=== PATIENT | female | born 1945 | race Caucasian/White ===

== ENCOUNTER 2017-01-28 14:03 | Outpatient (CLI) | payer MEDICARE, BC ==
--- NOTE | 2017-01-28 16:17 | RAD ---
CHEST PA AND LATERAL: History: 72-year-old female with cough. FINDINGS: Loop recorder overlies the anterior left chest. Atherosclerosis and old granulomatous disease. No co nfluent pneumonia, overt edema, or pleural effusion. IMPRESSION: No acute intrathoracic disease. POS: [facility]
== END 2017-01-28 14:04 | disposition home or self-care (01) ==
LOC: RAD-FRANK 14:03
PROVIDERS: ATTEND Nurse Practitioner Family
DX: R05 Cough (principal)
CPT/HCPCS: 71020

== ENCOUNTER 2017-07-15 12:00 | Outpatient (CLI) | payer MEDICARE, BC | END 2017-07-15 12:01 | disposition home or self-care (01) | LOC: BICCT 12:00 | PROVIDERS: ATTEND Nurse Practitioner Family | DX: J06.9 Acute upper respiratory infection, unspecified (principal); R05 Cough; R91.1 Solitary pulmonary nodule; Z77.22 Contact with and (suspected) exposure to environmental tobacco smoke (acute) (chronic) | CPT/HCPCS: 71250 ==

== ENCOUNTER 2017-09-30 12:40 | Emergency (ER) | payer MEDICARE, BC ==
[2017-09-30 13:39] LABS: #Basophils 0.1 thou/uL (0.0-0.2); #Eosinphils 0.1 thou/uL (0.0-0.7); #Lymphocytes 1.7 thou/uL (1.20-3.40); #Monocytes 0.7 thou/uL (0.11-0.59); #Neutrophils 5.7 thou/uL (1.40-6.50); %Basophils 0.9 % (0.0-1.0); %Eosinophils 0.9 % (0.0-10.0); %Lymphocytes 20.4 % (21.0-51.0); %Monocytes 8.9 % (0.0-10.0); %Neutrophils 68.8 % (42.0-75.0); Hemoglobin 14.9 g/dL (12.0-16.0); Mean Corpuscular HGB CONC 34.2 g/dL (32.0-36.0); Mean Corpuscular Hemoglobin 29.5 pg (27.0-31.0); Mean Corpuscular Volume 86.3 fL (78.0-98.0); Mean Platelet Volume 7.8 fL (7.4-10.4); Platelet Count 199 thou/uL (130-400); RBC Distribution Width 11.8 % (11.5-14.5); Red Blood Cell (RBC) Count 5.07 mill/uL (4.20-5.40); White Blood Cell (WBC) Count 8.3 thou/uL (4.8-10.8)
[2017-09-30 13:43] LABS: Anion Gap 13 mmol/L (10-20); BUN (Urea Nitrogen) 10 mg/dL (9.8-20.1); Calc. Creatinine Clearance 0 mL/min (70-130); Calcium 9.5 mg/dL (7.8-10.44); Carbon Dioxide 25 mmol/L (23-31); Chloride 105 mmol/L (98-107); Estimated GFR-MDRD Greater than 90; Glucose 124 mg/dL (83-110); Potassium 3.4 mmol/L (3.5-5.1); Sodium 140 mmol/L (136-145)
--- NOTE | 2017-09-30 13:48 | CT ---
CT HEAD NONCONTRAST: Date: 09/30/17 INDICATINO: Post-traumatic injury, head pain. FINDINGS: There is no acute intracranial hemorrhage, mass effect, or midline shift. The calvarium is intact. No pneumocephalus. IMPRESSION: No acute intracranial hemorrhage or mass effect. POS: [facility]
[2017-09-30 13:49] LABS: CKMB 1.4 ng/mL (0-6.6); Troponin I Less than 0.010 ng/mL (< 0.028)
[2017-09-30 13:56] LABS: Bilirubin Negative (Negative); Blood, Urine Trace (Negative); Glucose, Urine (Dipstick) Negative (Negative); Leukocyte Small (Negative); Nitrite Negative (Negative); Protein, Urine (Dipstick) Negative (Neg-Trace); Urobilinogen 0.2 mg/dL (0.2-1.0); pH, Urine 6.5 (5.0-9.0)
[2017-09-30 13:57] LABS: Clarity Hazy (Clear); Specific Gravity, Urine 1.006 (1.002-1.036)
[2017-09-30 14:00] LABS: Bacteria/HPF 3+ HPF (None Seen); RBC/HPF 0-3 HPF (0-3); WBC/HPF 0-3 HPF (0-3)
--- NOTE | 2017-09-30 15:56 | RAD ---
2 VIEWS CHEST: Date: 09/30/17 COMPARISON: 01/28/17. HISTORY: Chest trauma after syncope yesterday. Patient fell and hit left side of body. FINDINGS: Two views of the chest show normal sized cardiomediastinal silhouette. There is no evidence of consol idation, mass, or pleural effusion. The bones are unremarkable. A cardiac monitoring device projects over the left chest. IMPRESSION: No evidence of acute cardiopulmonary disease. POS: [facility]
--- NOTE | 2017-09-30 15:59 | RAD ---
LEFT HIP TWO VIEWS: HISTORY: Fall two days ago, landing on left side, with left hip and leg pain. FINDINGS: Two views of the left hip show no evidence of acute fracture or dislocation. No degenerative change is seen in the left hip. There is a well circumscribed, sclerotic lesion in the proximal diaphysis o f the femur. No focal soft tissue swelling is seen. IMPRESSION: No evidence of acute osseous abnormality. POS: [facility]
--- NOTE | 2017-09-30 15:59 | RAD ---
SINGLE VIEW OF THE PELVIS: Comparison: None. History: Fell with left sided hip pain. FINDINGS: Single view of the pelvis shows no evidence of acute fracture or dislocation. No significant degenera tive change is seen in either hip. IMPRESSION: No evidence of acute osseous abnormality. POS: [facility]
== END 2017-09-30 14:46 | disposition home or self-care (01) ==
LOC: SCSER 12:40
DX: S00.03XA Contusion of scalp, initial encounter (principal); S70.02XA Contusion of left hip, initial encounter; S30.1XXA Contusion of abdominal wall, initial encounter; N39.0 Urinary tract infection, site not specified; E03.9 Hypothyroidism, unspecified; I48.91 Unspecified atrial fibrillation; E78.1 Pure hyperglyceridemia; M85.80 Other specified disorders of bone density and structure, unspecified site; W18.30XA Fall on same level, unspecified, initial encounter
CPT/HCPCS: 70450; 71046; 72170; 80048; 81003; 81015; 82553; 84484; 85025

== ENCOUNTER 2017-10-28 10:29 | Outpatient (CLI) | payer MEDICARE, BC ==
--- NOTE | 2017-10-29 06:57 | EKG ---
Test Reason : Blood Pressure : / mmHG Vent. Rate : 054 BPM Atrial Rate : 054 BPM P-R Int : 160 ms QRS Dur : 094 ms QT Int : 458 ms P-R-T Axes : 070 055 043 degrees QTc Int : 434 ms Sinus bradycardia Otherwise normal ECG No previous ECGs available Confirmed by STEVO ABRAHAM ([id number]) on 10/29/2017 6:56:46 AM Referred By: JORDAN Confirmed By:STEVO ABRAHAM
== END 2017-10-28 10:30 | disposition home or self-care (01) ==
LOC: LABBT 10:29
PROVIDERS: ATTEND Internal Medicine Cardiovascular Disease
DX: Z01.818 Encounter for other preprocedural examination (principal); I47.2 Ventricular tachycardia
CPT/HCPCS: 36415; 80053; 80061; 85025; 85610; 85730; 93005; 93010

== ENCOUNTER 2017-10-31 06:52 | Day surgery (SDC) | payer MEDICARE, BC ==
[2017-10-28 09:58] VITALS: BMI 28.3
[2017-10-31] MEDS ORDERED: Midazolam HCl 2 mg/2 ml Vial ONE (10:17)
[2017-10-31] MEDS ORDERED: Fentanyl 100 MCG/2 ML VIAL ONE (10:17)
[2017-10-31] MEDS ORDERED: Iopamidol 370 76% 100 ML VIAL ONE (11:27)
== END 2017-10-31 14:05 | disposition home or self-care (01) ==
LOC: CCL 06:52
PROVIDERS: ATTEND Internal Medicine Cardiovascular Disease
DX: I47.2 Ventricular tachycardia (principal); I48.0 Paroxysmal atrial fibrillation; I50.30 Unspecified diastolic (congestive) heart failure; I47.1 Supraventricular tachycardia; E78.5 Hyperlipidemia, unspecified; K21.9 Gastro-esophageal reflux disease without esophagitis; G47.30 Sleep apnea, unspecified; K58.9 Irritable bowel syndrome, unspecified; Z79.52 Long term (current) use of systemic steroids; Z79.899 Other long term (current) drug therapy; Z79.01 Long term (current) use of anticoagulants; Z88.0 Allergy status to penicillin; Z88.2 Allergy status to sulfonamides; Z88.8 Allergy status to other drugs, medicaments and biological substances
CPT/HCPCS: 93458; C1769; 99152; J1644; J2250; J3010

== ENCOUNTER 2018-04-21 08:36 | Outpatient (CLI) | payer MEDICARE, BC ==
--- NOTE | 2018-04-21 10:32 | CT ---
CT OF CHEST PERFORMED WITHOUT CONTRAST ENHANCEMENT: History: Follow up with pulmonary nodule. Comparison: 07-15-17 FINDINGS: A calcified granuloma is seen in the right middle lobe. The indistinct subpleural left lower lobe pul monary nodule seen on axial image 102 is stable in size. It measures in the 6-7 mm range. No new nodu le is identified. No significant mediastinal or hilar adenopathy. Splenic granulomas are again demonstrated. Midthoracic vertebral body hemangioma with some superior e ndplate loss is again demonstrated. IMPRESSION: Stable left lower lobe pulmonary nodule. Additional annual follow up would be recommended. POS: [facility]
== END 2018-04-21 08:37 | disposition home or self-care (01) ==
LOC: BICCT 08:36
PROVIDERS: ATTEND Internal Medicine Critical Care Medicine
DX: R91.1 Solitary pulmonary nodule (principal)
CPT/HCPCS: 71250

== ENCOUNTER 2019-04-29 09:53 | Outpatient (CLI) | payer MEDICARE, BC ==
--- NOTE | 2019-04-29 11:12 | CT ---
CT OF THE CHEST: Date: 04/29/2019 COMPARISON: 04/21/2018. HISTORY: Reevaluate pulmonary nodule. TECHNIQUE: Axial CT imaging at 2 mm intervals through the chest without contrast. Coronal and sagittal reformatt ed imaging obtained. FINDINGS: The lack of contrast media limits assessment of the imaged viscera, the vascular structures, and for lymphadenopathy. Imaged upper abdomen demonstrates splenic granulomata and cholecystectomy clips. Par tially imaged colonic diverticulosis noted in the left upper quadrant. No pleural, pericardial, or mediastinal fluid. Loop recorder is noted within the subcutaneous fat in the mid left chest anteriorly. There is no pneumothorax on either side. There is a nodule in the left lower lobe on axial image 93 with a subtle halo of ground-glass opacity . This nodule measures approximately 5-6 mm in transverse dimension, unchanged when compared to the p rior examination. Stable granuloma noted in right middle lobe. No new pulmonary nodule is noted on either side. Review of the osseous structures demonstrates no acute findings. IMPRESSION: Stable nodule in the left lower lobe. An additional 1 year follow-up CT is suggested to document stab ility over a 2 year time period. POS: [facility]
== END 2019-04-29 09:54 | disposition home or self-care (01) ==
LOC: BICCT 09:53
PROVIDERS: ATTEND Internal Medicine Critical Care Medicine
DX: R91.8 Other nonspecific abnormal finding of lung field (principal)
CPT/HCPCS: 71250

== ENCOUNTER 2020-01-21 08:12 | Outpatient (CLI) | payer MEDICARE, BC ==
--- NOTE | 2020-01-21 09:36 | RAD ---
2 VIEW CHEST: Date: 01/21/2020 HISTORY: Fall with injury to chest. Comparison made to chest x-ray of 09/30/2017. FINDINGS: Lungs appear clear. No infiltrate or pneumothorax. Heart and mediastinum unremarkable and stable in a ppearance. Heart and mediastinum unremarkable and stable in appearance. Vascular markings are within normal range and stable. Vertebral bodies of the thoracic spine maintain height and alignment. Slight wedging of a mid thoracic vertebra is stable. No acute compression injury identified. IMPRESSION: No acute findings. POS: [facility]
[2020-01-21 10:12] LABS: #Basophils 0.1 thou/uL (0.0-0.2); #Eosinphils 0.1 thou/uL (0.0-0.7); #Lymphocytes 1.7 thou/uL (1.20-3.40); #Monocytes 0.6 thou/uL (0.11-0.59); #Neutrophils 4.6 thou/uL (1.40-6.50); %Basophils 0.8 % (0.0-1.0); %Eosinophils 1.6 % (0.0-10.0); %Lymphocytes 24.4 % (21.0-51.0); %Monocytes 8.1 % (0.0-10.0); %Neutrophils 65.1 % (42.0-75.0); Hemoglobin 13.4 g/dL (12.0-16.0); Mean Corpuscular HGB CONC 33.6 g/dL (32.0-36.0); Mean Corpuscular Hemoglobin 30.2 pg (27.0-31.0); Mean Corpuscular Volume 89.7 fL (78.0-98.0); Mean Platelet Volume 8.3 fL (7.4-10.4); Platelet Count 218 thou/uL (130-400); RBC Distribution Width 12.4 % (11.5-14.5); Red Blood Cell (RBC) Count 4.46 mill/uL (4.20-5.40)
[2020-01-21 10:30] LABS: Albumin 3.9 g/dL (3.4-4.8); Alkaline Phosphatase 75 U/L (40-110); Anion Gap 10 mmol/L (10-20); BUN (Urea Nitrogen) 9 mg/dL (9.8-20.1); Bilirubin, Total 0.4 mg/dL (0.2-1.2); Calc. Creatinine Clearance 0 mL/min (70-130); Calcium 9.1 mg/dL (7.8-10.44); Carbon Dioxide 30 mmol/L (23-31); Chloride 105 mmol/L (98-107); Estimated GFR-MDRD 86; Globulin 2.6 g/dL (2.4-3.5); Glucose 95 mg/dL (83-110); Potassium 3.8 mmol/L (3.5-5.1); Protein, Total 6.5 g/dL (6.0-8.3); Sodium 141 mmol/L (136-145); Triglycerides 182 mg/dL (Less than 150)
[2020-01-21 11:18] LABS: Thyroid Stimulating Hormone 1.4106 uIU/mL (0.35-4.94); Vitamin D, 25 Hydroxy 46.5 ng/ml (> 30.0)
[2020-01-21 13:07] LABS: ALT (SGPT) 18 U/L (8-55); AST (SGOT) 17 U/L (5-34); Cardiac Risk 2.9 (Less than 4.5); Cholesterol 137 mg/dl (< 200 Desired); HDL Cholesterol 48 mg/dL (>60 Neg Risk); LDL Cholesterol, Calculated 53 mg/dL
== END 2020-01-21 08:13 | disposition home or self-care (01) ==
LOC: SCSRAD 08:12
PROVIDERS: ATTEND Nurse Practitioner Family
DX: S20.211A Contusion of right front wall of thorax, initial encounter (principal); E03.9 Hypothyroidism, unspecified; K63.5 Polyp of colon; E55.9 Vitamin D deficiency, unspecified; M85.80 Other specified disorders of bone density and structure, unspecified site; G47.33 Obstructive sleep apnea (adult) (pediatric); E78.2 Mixed hyperlipidemia; K58.9 Irritable bowel syndrome, unspecified; I47.1 Supraventricular tachycardia; I48.0 Paroxysmal atrial fibrillation; I50.32 Chronic diastolic (congestive) heart failure
CPT/HCPCS: 36415; 71046; 80053; 80061; 82306; 84443; 85025

== ENCOUNTER 2021-12-17 17:22 | Emergency (ER) | payer MEDICARE, BC ==
[~2021-12-17 17:22] MED LIST: Iopamidol-370 76% 500 ML 1 ML ONE
[2021-12-17] MEDS ORDERED: Ondansetron PF 4 MG/2 ML Vial ONE (18:09)
[2021-12-17 18:34] LABS: #Lymphocytes 0.9 thou/uL (1.20-3.40); #Monocytes 1.2 thou/uL (0.11-0.59); #Neutrophils 11.4 thou/uL (1.40-6.50); %Basophils 0.1 % (0.0-1.0); %Eosinophils 0.2 % (0.0-10.0); %Lymphocytes 6.5 % (21.0-51.0); %Monocytes 8.5 % (0.0-10.0); %Neutrophils 84.6 % (42.0-75.0); Hemoglobin 14.2 g/dL (12.0-16.0); Mean Corpuscular HGB CONC 31.8 g/dL (32.0-36.0); Platelet Count 260 thou/uL (130-400); RBC Distribution Width 12.4 % (11.5-14.5); White Blood Cell (WBC) Count 13.5 thou/uL (4.8-10.8)
[2021-12-17 18:50] LABS: ALT (SGPT) 13 U/L (8-55); AST (SGOT) 16 U/L (5-34); Albumin 4.2 g/dL (3.4-4.8); Alkaline Phosphatase 77 U/L (40-110); Anion Gap 16 mmol/L (10-20); BUN (Urea Nitrogen) 39 mg/dL (9.8-20.1); Bilirubin, Total 0.7 mg/dL (0.2-1.2); CK (CPK) 27 U/L (29-168); Calc. Creatinine Clearance 0 mL/min (70-130); Calcium 9.8 mg/dL (7.8-10.44); Carbon Dioxide 32 mmol/L (23-31); Chloride 93 mmol/L (98-107); Estimated GFR 71; Globulin 2.7 g/dL (2.4-3.5); Glucose 138 mg/dL (83-110); Lipase 17 U/L (8-78); Potassium 3.1 mmol/L (3.5-5.1); Protein, Total 6.9 g/dL (5.8-8.1); Sodium 138 mmol/L (136-145)
[2021-12-17] MEDS ORDERED: Potassium Chloride 20 MEQ TAB ONE (20:11)
== END 2021-12-17 22:00 | disposition home or self-care (01) ==
LOC: ERS 17:22
DX: R11.2 Nausea with vomiting, unspecified (principal); E87.6 Hypokalemia; E03.9 Hypothyroidism, unspecified; I48.91 Unspecified atrial fibrillation
CPT/HCPCS: 36415; 74177; 80053; 82550; 83690; 84484; 85025; 93005; 96374; J2405; Q9967

== ENCOUNTER 2022-04-20 07:53 | Inpatient (IN) | payer MEDICARE, BC ==
[2022-04-20 08:35] LABS: #Lymphocytes 0.9 thou/uL (1.20-3.40); #Monocytes 0.6 thou/uL (0.11-0.59); #Neutrophils 3.8 thou/uL (1.40-6.50); %Basophils 0.2 % (0.0-1.0); %Eosinophils 0.2 % (0.0-10.0); %Lymphocytes 16.8 % (21.0-51.0); %Monocytes 10.5 % (0.0-10.0); %Neutrophils 72.3 % (42.0-75.0); Hemoglobin 15.8 g/dL (12.0-16.0); Mean Corpuscular HGB CONC 33.3 g/dL (32.0-36.0); Mean Corpuscular Hemoglobin 29.6 pg (27.0-31.0); Mean Corpuscular Volume 88.9 fl (78.0-98.0); Mean Platelet Volume 8.6 fL (7.4-10.4); Platelet Count 201 10x3/uL (130-400); RBC Distribution Width 12.4 % (11.5-14.5); Red Blood Cell (RBC) Count 5.34 mill/uL (4.20-5.40); White Blood Cell (WBC) Count 5.2 10x3/uL (4.8-10.8)
[2022-04-20] MEDS ORDERED: Ondansetron PF 4 MG/2 ML Vial ONE ×2 (09:05→14:20)
[2022-04-20 09:13] LABS: AST (SGOT) 28 U/L (5-34); Albumin 4.6 g/dL (3.4-4.8); Alkaline Phosphatase 70 U/L (40-110); Anion Gap 22 mmol/L (10-20); BUN (Urea Nitrogen) 21 mg/dL (9.8-20.1); Bilirubin, Total 0.6 mg/dL (0.2-1.2); Calc. Creatinine Clearance 0 mL/min (70-130); Calcium 10.4 mg/dL (7.8-10.44); Carbon Dioxide 27 mmol/L (23-31); Chloride 92 mmol/L (98-107); Estimated GFR 58; Globulin 3.5 g/dL (2.4-3.5); Glucose 104 mg/dL (83-110); Potassium 3.4 mmol/L (3.5-5.1); Protein, Total 8.1 g/dL (5.8-8.1); Sodium 138 mmol/L (136-145)
[2022-04-20 09:16] LABS: ALT (SGPT) 22 U/L (8-55); Lipase 81 U/L (8-78)
[2022-04-20] MEDS ORDERED: Iopamidol-370 76% 500 ML 1 ML ONE (10:27)
[2022-04-20 12:01] LABS: Bacteria/HPF None Seen HPF (None Seen); Bilirubin Negative (Negative); Blood, Urine Trace (Negative); Clarity Clear (Clear); Glucose, Urine (Dipstick) Normal (Negative); Ketone, Urine 60 mg/dL (Negative); Leukocyte 25 Leu/uL (Negative); Nitrite Negative (Negative); Protein, Urine (Dipstick) 30 mg/dL (Neg-Trace); Urobilinogen Normal mg/dL (Less than 2); pH, Urine 6.5 (5.0-9.0)
[2022-04-20 12:03] LABS: Specific Gravity, Urine Greater than 1.060 (1.002-1.036)
[2022-04-20] MEDS ORDERED: hydrALAZINE 20 MG/ML VIAL SLOW IVP PRN (15:08)
[2022-04-20] MEDS ORDERED: Morphine 2 MG/ML VIAL SLOW IVP PRN (15:08)
[2022-04-20] MEDS ORDERED: Morphine 4 MG/ML VIAL SLOW IVP PRN (15:08)
[2022-04-20] MEDS ORDERED: TETANUS, DIPHTHERIA TOX,ADULT (TDVAX) 0.5 ML VIAL IM ONE (15:08)
[2022-04-20] MEDS ORDERED: Ketorolac Tromethamine 30 MG/ML VIAL IVP PRN (15:14)
[2022-04-20] MEDS ORDERED: Ketorolac Tromethamine 30 MG/ML VIAL IVP SCH (15:15)
[2022-04-20] MEDS ORDERED: Potassium Chloride 40 MEQ in Premix Bag 1 BAG IVPB SCH (15:15)
[2022-04-20 16:02] VITALS: BMI 26.6
[2022-04-20] MEDS: D5 1/2 NS w/20 mEq KCL 1,000 ML IV SCH ×2 (16:26→21:00)
[2022-04-20] MEDS: Potassium Chloride 20 MEQ in Premix Bag 1 BAG IVPB SCH ×2 (16:27→18:21)
[2022-04-20] MEDS: Flecainide 50 MG TAB PO SCH (19:56)
[2022-04-21] MEDS: D5 1/2 NS w/20 mEq KCL 1,000 ML IV SCH ×3 (05:34→18:43)
[2022-04-21 06:11] LABS: ALT (SGPT) 17 U/L (8-55); AST (SGOT) 22 U/L (5-34); Albumin 3.8 g/dL (3.4-4.8); Alkaline Phosphatase 60 U/L (40-110); Anion Gap 15 mmol/L (10-20); BUN (Urea Nitrogen) 27 mg/dL (9.8-20.1); Bilirubin, Total 0.5 mg/dL (0.2-1.2); Calc. Creatinine Clearance 62 mL/min (70-130); Carbon Dioxide 35 mmol/L (23-31); Chloride 94 mmol/L (98-107); Estimated GFR 72; Globulin 2.9 g/dL (2.4-3.5); Glucose 108 mg/dL (83-110); Protein, Total 6.7 g/dL (5.8-8.1); Sodium 141 mmol/L (136-145)
[2022-04-21] MEDS ORDERED: MD-Gastroview 120 ML BOT ONE (11:20)
[2022-04-21] MEDS: Ondansetron ODT 4 MG TAB PO PRN (11:55)
[2022-04-21] MEDS: Flecainide 50 MG TAB PO SCH ×2 (12:40→20:19)
[2022-04-22] MEDS: D5 1/2 NS w/20 mEq KCL 1,000 ML IV SCH ×3 (02:16→17:59)
[2022-04-22] MEDS ORDERED: Fentanyl 250 MCG/5 ML VIAL ONE (09:06)
[2022-04-22] MEDS ORDERED: Sodium Chloride 0.9% 100 ML ONE (09:15)
[2022-04-22] MEDS ORDERED: cefOXitin 2 GM VIAL ONE (09:15)
[2022-04-22] MEDS: Flecainide 50 MG TAB PO SCH ×2 (09:19→21:43)
[2022-04-22] MEDS ORDERED: Levofloxacin 500 mg/D5W 100 ml Premix Bag ONE (09:23)
[2022-04-22 09:28] LABS: SARS-CoV-2 NAA Rapid Test DETECTED (NotDetected)
[2022-04-22] MEDS ORDERED: Succinylcholine Chloride 100 MG/5 ML SYRINGE FS ONE (09:34)
[2022-04-22] MEDS ORDERED: Rocuronium Bromide 10 MG/ML (10ML VIAL) ONE (09:34)
[2022-04-22] MEDS ORDERED: Dexamethasone 20 MG/5 ML VIAL ONE (09:34)
[2022-04-22] MEDS ORDERED: NEOSTIGMINE 3 MG/3 ML SYR 3 MG/3 ML SYRINGE ONE (09:34)
[2022-04-22] MEDS ORDERED: Lidocaine 1% PF 5 ML VIAL ONE (09:34)
[2022-04-22] MEDS ORDERED: PROPOFOL 200 MG/20 ML VIAL ONE (09:34)
[2022-04-22] MEDS ORDERED: Glycopyrrolate 0.2 MG/ML 5 ML SYRINGE ONE (09:34)
[2022-04-22] MEDS ORDERED: Ondansetron PF 4 MG/2 ML Vial ONE (09:34)
[2022-04-22] MEDS ORDERED: Ketorolac Tromethamine 30 MG/ML VIAL ONE (09:34)
[2022-04-22] MEDS ORDERED: Sodium Chloride 0.9% 1,000 ML IV SCH (10:30)
[2022-04-22] MEDS ORDERED: Fentanyl 100 MCG/2 ML VIAL ONE (10:31)
[2022-04-22] MEDS ORDERED: Naloxone HCl 0.4 mg/ml Vial IV PRN (10:39)
[2022-04-22] MEDS ORDERED: FENTANYL 500 MCG/10 ML VIAL 2,000 MCG in Sodium Chloride 0.9% 60 ML IV PRN (10:39)
[2022-04-22] MEDS ORDERED: Promethazine HCl 25 MG/ML VIAL IM PRN ×2 (10:39)
[2022-04-22] MEDS ORDERED: diphenhydrAMINE 25 MG CAP PO PRN (10:39)
[2022-04-22] MEDS ORDERED: Zolpidem Tartrate 5 MG TAB PO PRN (10:39)
[2022-04-22] MEDS ORDERED: diphenhydrAMINE 50 MG/ML VIAL IM PRN (10:39)
[2022-04-22] MEDS ORDERED: diphenhydrAMINE 50 MG/ML VIAL IVP PRN (10:39)
[2022-04-22] MEDS ORDERED: Ondansetron PF 4 MG/2 ML Vial IVP PRN (10:39)
[2022-04-22] MEDS ORDERED: Ondansetron HCl/PF 4 MG/2 ML Vial IVP PRN (10:39)
[2022-04-22] MEDS ORDERED: Communication Order-Pharmacy FS SCH (10:45)
[2022-04-23] MEDS: D5 1/2 NS w/20 mEq KCL 1,000 ML IV SCH ×3 (04:40→22:15)
[2022-04-23] MEDS: Flecainide 50 MG TAB PO SCH ×2 (09:28→22:13)
[2022-04-23 10:13] LABS: Anion Gap 9 mmol/L (10-20); BUN (Urea Nitrogen) 15 mg/dL (9.8-20.1); Calc. Creatinine Clearance 86 mL/min (70-130); Calcium 8.1 mg/dL (7.8-10.44); Carbon Dioxide 30 mmol/L (23-31); Chloride 104 mmol/L (98-107); Estimated GFR 92; Glucose 110 mg/dL (83-110); Potassium 3.4 mmol/L (3.5-5.1); Sodium 140 mmol/L (136-145)
[2022-04-24] MEDS: D5 1/2 NS w/20 mEq KCL 1,000 ML IV SCH ×3 (03:08→15:46)
[2022-04-24] MEDS: Flecainide 50 MG TAB PO SCH ×2 (11:07→20:46)
[2022-04-24] MEDS ORDERED: traMADol HCl 50 MG TAB PO PRN ×2 (12:11)
[2022-04-24] MEDS ORDERED: Fentanyl 100 MCG/2 ML VIAL SLOW IVP PRN (12:12)
[2022-04-24] MEDS: Acetaminophen 325 MG TAB PO SCH ×3 (13:19→20:45)
[2022-04-24] MEDS: Ketorolac Tromethamine 30 MG/ML VIAL IVP SCH (18:27)
[2022-04-25] MEDS: Ketorolac Tromethamine 30 MG/ML VIAL IVP SCH ×3 (00:41→12:51)
[2022-04-25] MEDS: Acetaminophen 325 MG TAB PO SCH ×6 (00:41→20:18)
[2022-04-25] MEDS: D5 1/2 NS w/20 mEq KCL 1,000 ML IV SCH (05:20)
[2022-04-25] MEDS: Flecainide 50 MG TAB PO SCH ×2 (08:50→20:21)
[2022-04-25] MEDS ORDERED: HYDROcodone/Acetaminophen 7.5/325 mg Tablet PO PRN (12:21)
[2022-04-25] MEDS ORDERED: Fentanyl 100 MCG/2 ML VIAL SLOW IVP PRN (12:21)
[2022-04-26] MEDS: Acetaminophen 325 MG TAB PO SCH ×6 (02:18→20:47)
[2022-04-26] MEDS: D5 1/2 NS w/20 mEq KCL 1,000 ML IV SCH ×2 (05:54→21:45)
[2022-04-26] MEDS: Flecainide 50 MG TAB PO SCH ×2 (10:22→20:42)
[2022-04-26] MEDS: Ondansetron ODT 4 MG TAB PO PRN (13:09)
[2022-04-27] MEDS: Acetaminophen 325 MG TAB PO SCH ×4 (01:10→13:00)
[2022-04-27] MEDS ORDERED: Milk Of Magnesia 30 ML UDCUP PO SCH (08:05)
[2022-04-27] MEDS: Flecainide 50 MG TAB PO SCH (09:32)
[2022-04-27 12:16] VITALS: BP 117/72; TEMP 98.2
== END 2022-04-27 15:36 | disposition home or self-care (01) | DRG 358 ==
LOC: ERS 07:53 → SJJU 11:36
PROVIDERS: ADMIT Specialist; ATTEND Specialist
PROC: 0D9770Z Drainage of Stomach, Pylorus with Drainage Device, Via Natural or Artificial Opening (ICD-10-PCS; 2022-04-20)
PROC: 3E0M05Z Introduction of Adhesion Barrier into Peritoneal Cavity, Open Approach (ICD-10-PCS; principal; 2022-04-22)
PROC: 0DQV0ZZ Repair Mesentery, Open Approach (ICD-10-PCS; 2022-04-22)
DX: K46.0 Unspecified abdominal hernia with obstruction, without gangrene (principal); I10 Essential (primary) hypertension; E03.9 Hypothyroidism, unspecified; I48.91 Unspecified atrial fibrillation; K63.5 Polyp of colon; G47.30 Sleep apnea, unspecified; K66.0 Peritoneal adhesions (postprocedural) (postinfection); Z98.890 Other specified postprocedural states; Z88.0 Allergy status to penicillin; Z88.2 Allergy status to sulfonamides; Z79.899 Other long term (current) drug therapy; Z79.01 Long term (current) use of anticoagulants; Z90.49 Acquired absence of other specified parts of digestive tract; Z90.710 Acquired absence of both cervix and uterus; K57.30 Diverticulosis of large intestine without perforation or abscess without bleeding; E78.1 Pure hyperglyceridemia; Z98.41 Cataract extraction status, right eye; Z98.42 Cataract extraction status, left eye; F41.9 Anxiety disorder, unspecified; K57.10 Diverticulosis of small intestine without perforation or abscess without bleeding
CPT/HCPCS: 36415; 36416; 74018; 74022; 74177; 74250; 80048; 80053; 81003; 81015; 83690; 84484; 85025; 96374; 96376; C1776; J0694; J1100; J1200; J1650; J1885; J1956; J2405; J2704; J3010; J3480; J3490; Q0162; Q9963; Q9967; U0002

== ENCOUNTER 2022-12-20 08:30 | Outpatient (CLI) | payer MEDICARE, BC ==
[2022-12-20] MEDS ORDERED: Iopamidol 370 76% 100 ML VIAL ONE (13:06)
== END 2022-12-20 08:31 | disposition home or self-care (01) ==
LOC: BICCT 08:30
PROVIDERS: ATTEND Surgery
DX: K56.609 Unspecified intestinal obstruction, unspecified as to partial versus complete obstruction (principal); K57.30 Diverticulosis of large intestine without perforation or abscess without bleeding; K63.89 Other specified diseases of intestine; R91.1 Solitary pulmonary nodule; K43.9 Ventral hernia without obstruction or gangrene; K42.9 Umbilical hernia without obstruction or gangrene; K46.9 Unspecified abdominal hernia without obstruction or gangrene; Z90.49 Acquired absence of other specified parts of digestive tract; Z90.710 Acquired absence of both cervix and uterus
CPT/HCPCS: 74177; 82565

== ENCOUNTER 2023-02-18 09:45 | Outpatient (CLI) | payer MEDICARE, BC ==
[2023-02-18 11:13] LABS: #Eosinphils 0.1 10x3/uL (0.0-0.5); #Monocytes 0.6 10x3/uL (0.0-1.1); #Neutrophils 4.8 10x3/uL (1.5-8.4); %Basophils 0.6 % (0.0-2.0); %Eosinophils 1.3 % (0.0-6.0); %Lymphocytes 19.1 % (18.0-47.0); %Monocytes 8.1 % (0.0-10.0); %Neutrophils 70.6 % (40.0-75.0); Hematocrit 43.1 % (34.9-44.5); Hemoglobin 14.1 g/dL (12.0-15.5); Mean Corpuscular HGB CONC 32.7 g/dL (32.0-36.0); Mean Corpuscular Volume 88.7 fl (81.6-98.3); Mean Platelet Volume 10.1 fl (7.4-10.4); Platelet Count 218 10x3/uL (150-450); RBC Distribution Width 12.9 % (11.5-14.5); Red Blood Cell (RBC) Count 4.86 10x6/uL (3.90-5.03); White Blood Cell (WBC) Count 6.8 10x3/uL (3.5-10.5)
[2023-02-18 11:41] LABS: Anion Gap 16 mmol/L (10-20); BUN (Urea Nitrogen) 13 mg/dL (9.8-20.1); Calc. Creatinine Clearance 0 mL/min (70-130); Calcium 9.2 mg/dL (7.8-10.44); Carbon Dioxide 22 mmol/L (23-31); Chloride 106 mmol/L (98-107); Estimated GFR 91; Glucose 77 mg/dL (83-110); Potassium 4.3 mmol/L (3.5-5.1); Sodium 140 mmol/L (136-145)
== END 2023-02-18 09:46 | disposition home or self-care (01) ==
LOC: LABBT 09:45
PROVIDERS: ATTEND Surgery
DX: Z01.818 Encounter for other preprocedural examination (principal); K43.2 Incisional hernia without obstruction or gangrene
CPT/HCPCS: 80048; 85025

== ENCOUNTER 2023-02-21 09:22 | Day surgery (SDC) | payer MEDICARE, BC ==
[2023-02-18 10:24] VITALS: BMI 25.7
[2023-02-21] MEDS ORDERED: Lidocaine 1% PF 5 ML VIAL ONE ×2 (11:02→12:36)
[2023-02-21] MEDS ORDERED: PROPOFOL 20 ML ONE (11:02)
[2023-02-21] MEDS ORDERED: Rocuronium Bromide 10 MG/ML (10ML VIAL) ONE ×2 (11:02→12:36)
[2023-02-21] MEDS ORDERED: Bupivacaine 0.25% HCL 30 ML VIAL ONE (12:17)
[2023-02-21] MEDS ORDERED: EPINEPHrine 1 MG/ML VIAL ONE (12:17)
[2023-02-21] MEDS ORDERED: LevoFLOXacin 500 mg/D5W 100 ML BAG ONE (12:25)
[2023-02-21] MEDS ORDERED: fentaNYL PF 100 MCG/2 ML SYRINGE ONE (12:31)
[2023-02-21] MEDS ORDERED: Ondansetron PF 4 MG/2 ML Vial ONE ×3 (12:36→16:30)
[2023-02-21] MEDS ORDERED: PROPOFOL 200 MG/20 ML VIAL ONE (12:36)
[2023-02-21] MEDS ORDERED: Dexamethasone 20 MG/5 ML VIAL ONE (12:36)
[2023-02-21] MEDS ORDERED: SUGAMMADEX SODIUM 200 MG/2 ML VIAL ONE (13:53)
[2023-02-21] MEDS ORDERED: HYDROmorphone 0.5 MG/0.5 ML SYRINGE ONE ×2 (14:21→14:35)
[2023-02-21] MEDS ORDERED: Ketorolac Tromethamine 30 MG/ML VIAL ONE (14:27)
[2023-02-21] MEDS ORDERED: fentaNYL 50 mcg/mL 1 mL Vial ONE ×2 (14:53→15:15)
[2023-02-21] MEDS ORDERED: HYDROcodone/Acetaminophen 5/325 mg Tablet ONE (16:51)
== END 2023-02-21 18:01 | disposition home or self-care (01) ==
LOC: SDC 09:22
PROVIDERS: ATTEND Surgery
PROC: 0WUF0JZ Supplement Abdominal Wall with Synthetic Substitute, Open Approach (ICD-10-PCS; principal; 2023-02-21)
DX: K43.2 Incisional hernia without obstruction or gangrene (principal); K43.9 Ventral hernia without obstruction or gangrene; Z88.0 Allergy status to penicillin; Z88.2 Allergy status to sulfonamides
CPT/HCPCS: 49593; A4314; C1781; J0171; J3010; J1100; J1170; J1885; J1956; J2405; J2704; S0020

== ENCOUNTER 2023-02-27 11:17 | Inpatient (IN) | payer MEDICARE, BC ==
[~2023-02-27 11:17] MED LIST changes: -Iopamidol-370 76% 500 ML 1 ML ONE; +Iopamidol-370 76% 500 ML MDV (1 ML CHARGE) ONE
[2023-02-27] MEDS ORDERED: Prochlorperazine 10 MG/2 ML VIAL ONE (12:31)
[2023-02-27 13:09] LABS: #Eosinphils 0.2 thou/uL (0.0-0.7); #Monocytes 0.9 thou/uL (0.11-0.59); #Neutrophils 7.9 thou/uL (1.40-6.50); %Basophils 0.3 % (0.0-1.0); %Eosinophils 1.9 % (0.0-10.0); %Lymphocytes 10.5 % (21.0-51.0); %Monocytes 8.4 % (0.0-10.0); %Neutrophils 78.5 % (42.0-75.0); Hematocrit 45.2 % (36.0-47.0); Hemoglobin 14.8 g/dL (12.0-16.0); Mean Corpuscular HGB CONC 32.7 g/dL (32.0-36.0); Mean Corpuscular Hemoglobin 28.9 pg (27.0-31.0); Mean Corpuscular Volume 88.3 fl (78.0-98.0); Mean Platelet Volume 9.6 fL (7.4-10.4); Platelet Count 253 10x3/uL (130-400); RBC Distribution Width 13.2 % (11.5-14.5); Red Blood Cell (RBC) Count 5.12 mill/uL (4.20-5.40); White Blood Cell (WBC) Count 10.1 10x3/uL (4.8-10.8)
[2023-02-27 13:29] LABS: ALT (SGPT) 12 U/L (8-55); AST (SGOT) 23 U/L (5-34); Albumin 4.3 g/dL (3.4-4.8); Alkaline Phosphatase 95 U/L (40-110); Anion Gap 18 mmol/L (10-20); BUN (Urea Nitrogen) 13 mg/dL (9.8-20.1); Bilirubin, Total 0.8 mg/dL (0.2-1.2); Calc. Creatinine Clearance 0 mL/min (70-130); Calcium 9.9 mg/dL (7.8-10.44); Carbon Dioxide 28 mmol/L (23-31); Chloride 98 mmol/L (98-107); Estimated GFR 88; Globulin 2.9 g/dL (2.4-3.5); Glucose 94 mg/dL (83-110); Lipase 24 U/L (8-78); Potassium 4.1 mmol/L (3.5-5.1); Protein, Total 7.2 g/dL (5.8-8.1); Sodium 140 mmol/L (136-145)
[2023-02-27 17:21] LABS: Bilirubin Negative (Negative); Blood, Urine Negative (Negative); CAUTI Indications for Culture Pelvic or flank pain; Clarity Clear (Clear); Glucose, Urine (Dipstick) Normal (Negative); Ketone, Urine 80 mg/dL (Negative); Leukocyte Negative Leu/uL (Negative); Nitrite Negative (Negative); Protein, Urine (Dipstick) 10 mg/dL (Neg-Trace); RBC/HPF 0-3 HPF (0-3); Squamous Epithelial 0-3 HPF (0-3); Urobilinogen Normal mg/dL (Less than 2); WBC/HPF 0-3 HPF (0-3)
[2023-02-27] MEDS ORDERED: Morphine 2 MG/ML VIAL SLOW IVP PRN (17:27)
[2023-02-27] MEDS ORDERED: Acetaminophen 650 MG Suppository PR PRN (17:27)
[2023-02-27] MEDS ORDERED: Acetaminophen 325 MG TAB PO PRN (17:27)
[2023-02-27] MEDS ORDERED: Ondansetron ODT 4 MG TAB PO PRN (17:27)
[2023-02-27 17:28] LABS: Specific Gravity, Urine 1.045 (1.002-1.036)
[2023-02-27 17:29] LABS: Bacteria/HPF Rare-Few HPF (None Seen); Urine Culture Reflex No No
[2023-02-27] MEDS ORDERED: Electrolyte Replacement Protocol 1 EACH FS SCH (17:30)
[2023-02-27 18:35] LABS: Magnesium 2.1 mg/dL (1.6-2.6)
[2023-02-27] MEDS: Sodium Chloride 0.9% 1,000 ML IV SCH (21:00)
[2023-02-27 22:17] VITALS: BMI 24.2
[2023-02-28 04:08] LABS: #Eosinphils 0.3 thou/uL (0.0-0.7); #Monocytes 0.8 thou/uL (0.11-0.59); #Neutrophils 5.8 thou/uL (1.40-6.50); %Basophils 0.5 % (0.0-1.0); %Eosinophils 4.3 % (0.0-10.0); %Lymphocytes 13.3 % (21.0-51.0); %Monocytes 9.5 % (0.0-10.0); %Neutrophils 71.9 % (42.0-75.0); Hematocrit 38.9 % (36.0-47.0); Hemoglobin 12.7 g/dL (12.0-16.0); Mean Corpuscular HGB CONC 32.6 g/dL (32.0-36.0); Mean Corpuscular Hemoglobin 29.5 pg (27.0-31.0); Mean Corpuscular Volume 90.3 fl (78.0-98.0); Mean Platelet Volume 9.6 fL (7.4-10.4); Platelet Count 221 10x3/uL (130-400); RBC Distribution Width 13.2 % (11.5-14.5); Red Blood Cell (RBC) Count 4.31 mill/uL (4.20-5.40)
[2023-02-28 04:32] LABS: ALT (SGPT) 9 U/L (8-55); AST (SGOT) 14 U/L (5-34); Albumin 3.2 g/dL (3.4-4.8); Alkaline Phosphatase 71 U/L (40-110); Anion Gap 16 mmol/L (10-20); BUN (Urea Nitrogen) 15 mg/dL (9.8-20.1); Bilirubin, Total 0.7 mg/dL (0.2-1.2); Calc. Creatinine Clearance 77 mL/min (70-130); Calcium 8.8 mg/dL (7.8-10.44); Carbon Dioxide 29 mmol/L (23-31); Chloride 100 mmol/L (98-107); Estimated GFR 90; Globulin 2.6 g/dL (2.4-3.5); Glucose 85 mg/dL (83-110); Potassium 3.1 mmol/L (3.5-5.1); Protein, Total 5.8 g/dL (5.8-8.1); Sodium 142 mmol/L (136-145)
[2023-02-28] MEDS: Sodium Chloride 0.9% 1,000 ML IV SCH ×4 (05:20→22:03)
[2023-02-28] MEDS: Potassium Chloride 20 MEQ in Premix 1 BAG IVPB SCH ×2 (08:11→10:42)
[2023-03-01 04:55] LABS: #Basophils 0.1 thou/uL (0.0-0.2); #Eosinphils 0.3 thou/uL (0.0-0.7); #Monocytes 0.8 thou/uL (0.11-0.59); #Neutrophils 6.5 thou/uL (1.40-6.50); %Basophils 0.7 % (0.0-1.0); %Eosinophils 3.8 % (0.0-10.0); %Lymphocytes 10.7 % (21.0-51.0); %Monocytes 9.1 % (0.0-10.0); %Neutrophils 75.1 % (42.0-75.0); Hematocrit 38.8 % (36.0-47.0); Hemoglobin 12.3 g/dL (12.0-16.0); Mean Corpuscular HGB CONC 31.7 g/dL (32.0-36.0); Mean Corpuscular Hemoglobin 28.7 pg (27.0-31.0); Mean Corpuscular Volume 90.7 fl (78.0-98.0); Mean Platelet Volume 9.9 fL (7.4-10.4); Platelet Count 213 10x3/uL (130-400); RBC Distribution Width 13.2 % (11.5-14.5); Red Blood Cell (RBC) Count 4.28 mill/uL (4.20-5.40); White Blood Cell (WBC) Count 8.6 10x3/uL (4.8-10.8)
[2023-03-01 05:30] LABS: Anion Gap 16 mmol/L (10-20); BUN (Urea Nitrogen) 15 mg/dL (9.8-20.1); Calc. Creatinine Clearance 84 mL/min (70-130); Calcium 8.5 mg/dL (7.8-10.44); Carbon Dioxide 21 mmol/L (23-31); Chloride 109 mmol/L (98-107); Estimated GFR 92; Glucose 74 mg/dL (83-110); Potassium 3.1 mmol/L (3.5-5.1); Sodium 143 mmol/L (136-145)
[2023-03-01] MEDS: Sodium Chloride 0.9% 1,000 ML IV SCH ×2 (06:21→17:42)
[2023-03-01] MEDS: Potassium Chloride 20 MEQ in Premix 1 BAG IVPB SCH ×2 (09:17→10:35)
[2023-03-01] MEDS ORDERED: PROPOFOL 20 ML ONE (12:33)
[2023-03-01] MEDS ORDERED: ePHEDrine Sulfate 50 MG/10 ML VIAL ONE (12:49)
[2023-03-01] MEDS ORDERED: EPINEPHrine 1 MG/ML VIAL ONE (13:06)
[2023-03-01] MEDS ORDERED: Bupivacaine 0.25% HCL 30 ML VIAL ONE (13:06)
[2023-03-01] MEDS ORDERED: fentaNYL PF 100 MCG/2 ML SYRINGE ONE (13:08)
[2023-03-01] MEDS ORDERED: LevoFLOXacin D5W 500 mg (100 mL) BAG ONE (13:17)
[2023-03-01] MEDS ORDERED: Succinylcholine 200 MG/10 ml SYRINGE FS ONE ×2 (13:28→13:32)
[2023-03-01] MEDS ORDERED: Glycopyrrolate 0.2 MG/ML 5 ML SYRINGE ONE ×2 (13:32→14:38)
[2023-03-01] MEDS ORDERED: Lidocaine 1% PF 5 ML VIAL ONE (13:32)
[2023-03-01] MEDS ORDERED: PROPOFOL 200 MG/20 ML VIAL ONE (13:32)
[2023-03-01] MEDS ORDERED: NEOSTIGMINE 3 MG/3 ML SYR 3 MG/3 ML SYRINGE ONE ×2 (13:32→14:38)
[2023-03-01] MEDS ORDERED: Ondansetron PF 4 MG/2 ML Vial ONE ×2 (13:32→14:37)
[2023-03-01] MEDS ORDERED: Dexamethasone 20 MG/5 ML VIAL ONE (13:32)
[2023-03-01] MEDS ORDERED: Rocuronium Bromide 10 MG/ML (10ML VIAL) ONE (13:32)
[2023-03-01] MEDS ORDERED: Ondansetron HCl/PF 4 MG/2 ML Vial IVP PRN ×2 (14:18→15:05)
[2023-03-01] MEDS ORDERED: Promethazine HCl 25 MG/ML VIAL IM PRN ×2 (14:18→15:05)
[2023-03-01] MEDS ORDERED: fentaNYL 50 mcg/mL 1 mL Vial ONE ×5 (14:59→15:55)
[2023-03-01] MEDS ORDERED: Morphine Sulfate 2 MG/ML SYRINGE SLOW IVP PRN (15:05)
[2023-03-01] MEDS ORDERED: Ketorolac Tromethamine 30 MG (1 mL) VIAL IVP PRN (15:51)
[2023-03-01] MEDS: Morphine 4 MG/ML VIAL SLOW IVP PRN (19:45)
[2023-03-02] MEDS: Morphine 4 MG/ML VIAL SLOW IVP PRN ×2 (00:44→06:45)
[2023-03-02] MEDS: Sodium Chloride 0.9% 1,000 ML IV SCH ×3 (00:45→17:00)
[2023-03-02 06:09] LABS: %Basophils 0.2 % (0.0-1.0); %Eosinophils 0.4 % (0.0-10.0); %Lymphocytes 7.1 % (21.0-51.0); %Monocytes 10.3 % (0.0-10.0); %Neutrophils 81.4 % (42.0-75.0); Hematocrit 37.7 % (36.0-47.0); Hemoglobin 11.8 g/dL (12.0-16.0); Mean Corpuscular HGB CONC 31.3 g/dL (32.0-36.0); Mean Corpuscular Hemoglobin 28.9 pg (27.0-31.0); Mean Corpuscular Volume 92.4 fl (78.0-98.0); Mean Platelet Volume 9.7 fL (7.4-10.4); Platelet Count 210 10x3/uL (130-400); RBC Distribution Width 13.3 % (11.5-14.5); Red Blood Cell (RBC) Count 4.08 mill/uL (4.20-5.40); White Blood Cell (WBC) Count 9.9 10x3/uL (4.8-10.8)
[2023-03-02 06:44] LABS: Anion Gap 14 mmol/L (10-20); BUN (Urea Nitrogen) 10 mg/dL (9.8-20.1); Calc. Creatinine Clearance 82 mL/min (70-130); Calcium 8.4 mg/dL (7.8-10.44); Carbon Dioxide 19 mmol/L (23-31); Chloride 115 mmol/L (98-107); Estimated GFR 91; Glucose 93 mg/dL (83-110); Magnesium 1.9 mg/dL (1.6-2.6); Potassium 3.7 mmol/L (3.5-5.1); Sodium 144 mmol/L (136-145)
[2023-03-02] MEDS ORDERED: Magnesium 2 GM/50 ML(in water) 2 GM in Premix 1 BAG IVPB SCH (08:00)
[2023-03-02] MEDS ORDERED: Enoxaparin 40 MG (0.4 mL) SYRINGE SC SCH (09:00)
[2023-03-02] MEDS: Enoxaparin 40 MG (0.4 mL) SYRINGE SC SCH (09:14)
[2023-03-02] MEDS: Morphine 2 MG/ML VIAL SLOW IVP PRN ×2 (14:04→20:33)
[2023-03-03] MEDS: Sodium Chloride 0.9% 1,000 ML IV SCH ×3 (02:05→20:08)
[2023-03-03] MEDS: Levothyroxine Sodium 50 MCG TAB PO SCH (05:13)
[2023-03-03] MEDS: Thyroid 30 MG TAB PO SCH (05:13)
[2023-03-03 06:16] LABS: Hematocrit 37.8 % (36.0-47.0); Hemoglobin 12.2 g/dL (12.0-16.0); Mean Corpuscular HGB CONC 32.3 g/dL (32.0-36.0); Mean Corpuscular Hemoglobin 29.5 pg (27.0-31.0); Mean Corpuscular Volume 91.5 fl (78.0-98.0); Mean Platelet Volume 9.6 fL (7.4-10.4); Platelet Count 181 10x3/uL (130-400); RBC Distribution Width 13.2 % (11.5-14.5); Red Blood Cell (RBC) Count 4.13 mill/uL (4.20-5.40); White Blood Cell (WBC) Count 6.7 10x3/uL (4.8-10.8)
[2023-03-03 06:41] LABS: Anion Gap 13 mmol/L (10-20); BUN (Urea Nitrogen) 10 mg/dL (9.8-20.1); Calc. Creatinine Clearance 100 mL/min (70-130); Calcium 8.1 mg/dL (7.8-10.44); Carbon Dioxide 22 mmol/L (23-31); Chloride 113 mmol/L (98-107); Estimated GFR 96; Glucose 75 mg/dL (83-110); Sodium 145 mmol/L (136-145)
[2023-03-03] MEDS ORDERED: Electrolyte Replacement Protocol 1 EACH FS SCH (09:02)
[2023-03-03] MEDS: Potassium Chloride 20 MEQ in Premix 1 BAG IVPB SCH ×3 (09:25→14:27)
[2023-03-03] MEDS: Enoxaparin 40 MG (0.4 mL) SYRINGE SC SCH (09:26)
[2023-03-03] MEDS: Raloxifene 60 MG TAB PO SCH (11:36)
[2023-03-03] MEDS: Ketorolac Tromethamine 30 MG (1 mL) VIAL IVP PRN (12:52)
[2023-03-04] MEDS: Levothyroxine Sodium 50 MCG TAB PO SCH (05:12)
[2023-03-04] MEDS: Thyroid 30 MG TAB PO SCH (05:12)
[2023-03-04] MEDS: Sodium Chloride 0.9% 1,000 ML IV SCH (05:12)
[2023-03-04 07:27] LABS: Anion Gap 22 mmol/L (10-20); BUN (Urea Nitrogen) 9 mg/dL (9.8-20.1); Calc. Creatinine Clearance 92 mL/min (70-130); Calcium 8.6 mg/dL (7.8-10.44); Carbon Dioxide 17 mmol/L (23-31); Chloride 111 mmol/L (98-107); Estimated GFR 94; Glucose 64 mg/dL (83-110); Magnesium 1.8 mg/dL (1.6-2.6); Potassium 3.1 mmol/L (3.5-5.1); Sodium 147 mmol/L (136-145)
[2023-03-04] MEDS ORDERED: Magnesium 2 GM/50 ML(in water) 2 GM in Premix 1 BAG IVPB SCH (08:00)
[2023-03-04] MEDS ORDERED: Potassium Chloride 20 MEQ TAB PO SCH (08:00)
[2023-03-04] MEDS: Enoxaparin 40 MG (0.4 mL) SYRINGE SC SCH (09:23)
[2023-03-04] MEDS: Ketorolac Tromethamine 30 MG (1 mL) VIAL IVP PRN (09:23)
[2023-03-04] MEDS: Dextrose 5 %-0.45 % NaCl 1,000 ML IV SCH ×2 (09:24→23:09)
[2023-03-04] MEDS: Raloxifene 60 MG TAB PO SCH (09:24)
[2023-03-04] MEDS: Potassium Chloride 20 MEQ in Premix 1 BAG IVPB SCH ×2 (09:24→11:25)
[2023-03-04] MEDS ORDERED: MD-Gastroview 120 ML BOT ONE ×2 (10:12→12:23)
[2023-03-04] MEDS: Ondansetron PF 4 MG/2 ML Vial IVP PRN (20:38)
[2023-03-05] MEDS: Ketorolac Tromethamine 30 MG (1 mL) VIAL IVP PRN (01:19)
[2023-03-05] MEDS: Ondansetron PF 4 MG/2 ML Vial IVP PRN (03:31)
[2023-03-05] MEDS: Dextrose 5 %-0.45 % NaCl 1,000 ML IV SCH (03:34)
[2023-03-05 05:40] LABS: Hematocrit 44.1 % (36.0-47.0); Mean Corpuscular HGB CONC 31.7 g/dL (32.0-36.0); Mean Corpuscular Hemoglobin 28.5 pg (27.0-31.0); Mean Corpuscular Volume 89.6 fl (78.0-98.0); Platelet Count 252 10x3/uL (130-400); RBC Distribution Width 13.3 % (11.5-14.5); Red Blood Cell (RBC) Count 4.92 mill/uL (4.20-5.40); White Blood Cell (WBC) Count 10.2 10x3/uL (4.8-10.8)
[2023-03-05] MEDS: Prochlorperazine Edisylate 10 MG in Sodium Chloride 0.9% 50 ML IVPB PRN (05:42)
[2023-03-05] MEDS: Levothyroxine Sodium 50 MCG TAB PO SCH (05:47)
[2023-03-05] MEDS: Thyroid 30 MG TAB PO SCH (05:47)
[2023-03-05 06:01] LABS: Phosphorus 2.8 mg/dL (2.3-4.7)
[2023-03-05 06:09] LABS: Anion Gap 16 mmol/L (10-20); BUN (Urea Nitrogen) 8 mg/dL (9.8-20.1); Calc. Creatinine Clearance 73 mL/min (70-130); Calcium 9.6 mg/dL (7.8-10.44); Carbon Dioxide 26 mmol/L (23-31); Chloride 105 mmol/L (98-107); Estimated GFR 89; Glucose 134 mg/dL (83-110); Magnesium 2.1 mg/dL (1.6-2.6); Potassium 2.9 mmol/L (3.5-5.1); Sodium 144 mmol/L (136-145)
[2023-03-05] MEDS: Potassium Chloride 20 MEQ in Premix 1 BAG IVPB SCH ×4 (09:26→17:13)
[2023-03-05] MEDS: Enoxaparin 40 MG (0.4 mL) SYRINGE SC SCH (09:27)
[2023-03-05] MEDS: Raloxifene 60 MG TAB PO SCH (09:27)
[2023-03-05] MEDS: D5 1/2 NS w/20 mEq KCL 1,000 ML IV SCH (21:19)
[2023-03-05] MEDS: Metoclopramide HCl 10 MG (2 mL) VIAL IVP SCH (21:19)
[2023-03-06] MEDS: Levothyroxine Sodium 50 MCG TAB PO SCH (05:30)
[2023-03-06] MEDS: Thyroid 30 MG TAB PO SCH (05:30)
[2023-03-06] MEDS: Metoclopramide HCl 10 MG (2 mL) VIAL IVP SCH ×3 (05:30→21:00)
[2023-03-06 08:28] LABS: Anion Gap 14 mmol/L (10-20); BUN (Urea Nitrogen) 11 mg/dL (9.8-20.1); Calc. Creatinine Clearance 75 mL/min (70-130); Calcium 9.2 mg/dL (7.8-10.44); Carbon Dioxide 28 mmol/L (23-31); Chloride 103 mmol/L (98-107); Estimated GFR 90; Glucose 131 mg/dL (83-110); Potassium 3.3 mmol/L (3.5-5.1); Sodium 142 mmol/L (136-145)
[2023-03-06] MEDS: Raloxifene 60 MG TAB PO SCH (09:54)
[2023-03-06] MEDS: Enoxaparin 40 MG (0.4 mL) SYRINGE SC SCH (10:00)
[2023-03-06] MEDS: D5 1/2 NS w/20 mEq KCL 1,000 ML IV SCH (10:45)
[2023-03-07] MEDS: D5 1/2 NS w/20 mEq KCL 1,000 ML IV SCH ×2 (00:32→16:13)
[2023-03-07] MEDS: Levothyroxine Sodium 50 MCG TAB PO SCH (05:18)
[2023-03-07] MEDS: Thyroid 30 MG TAB PO SCH (05:19)
[2023-03-07] MEDS: Metoclopramide HCl 10 MG (2 mL) VIAL IVP SCH ×3 (05:19→21:48)
[2023-03-07 05:48] LABS: #Basophils 0.1 thou/uL (0.0-0.2); #Eosinphils 0.7 thou/uL (0.0-0.7); #Monocytes 0.9 thou/uL (0.11-0.59); #Neutrophils 5.9 thou/uL (1.40-6.50); %Basophils 0.7 % (0.0-1.0); %Eosinophils 7.8 % (0.0-10.0); Hematocrit 42.3 % (36.0-47.0); Hemoglobin 13.5 g/dL (12.0-16.0); Mean Corpuscular HGB CONC 31.9 g/dL (32.0-36.0); Mean Corpuscular Hemoglobin 28.5 pg (27.0-31.0); Mean Corpuscular Volume 89.2 fl (78.0-98.0); Mean Platelet Volume 10.5 fL (7.4-10.4); Platelet Count 231 10x3/uL (130-400); RBC Distribution Width 13.2 % (11.5-14.5); Red Blood Cell (RBC) Count 4.74 mill/uL (4.20-5.40); White Blood Cell (WBC) Count 8.9 10x3/uL (4.8-10.8)
[2023-03-07 06:19] LABS: Anion Gap 15 mmol/L (10-20); BUN (Urea Nitrogen) 15 mg/dL (9.8-20.1); Calc. Creatinine Clearance 61 mL/min (70-130); Calcium 9.5 mg/dL (7.8-10.44); Carbon Dioxide 36 mmol/L (23-31); Chloride 97 mmol/L (98-107); Estimated GFR 74; Glucose 112 mg/dL (83-110); Magnesium 1.8 mg/dL (1.6-2.6); Potassium 3.2 mmol/L (3.5-5.1); Sodium 145 mmol/L (136-145)
[2023-03-07] MEDS: Enoxaparin 40 MG (0.4 mL) SYRINGE SC SCH (09:59)
[2023-03-07] MEDS: Raloxifene 60 MG TAB PO SCH (10:00)
[2023-03-08] MEDS: Levothyroxine Sodium 50 MCG TAB PO SCH (05:18)
[2023-03-08] MEDS: D5 1/2 NS w/20 mEq KCL 1,000 ML IV SCH (05:18)
[2023-03-08] MEDS: Metoclopramide HCl 10 MG (2 mL) VIAL IVP SCH ×3 (05:19→21:12)
[2023-03-08] MEDS: Thyroid 30 MG TAB PO SCH (05:22)
[2023-03-08 06:59] LABS: #Basophils 0.1 thou/uL (0.0-0.2); #Eosinphils 0.8 thou/uL (0.0-0.7); #Monocytes 0.9 thou/uL (0.11-0.59); #Neutrophils 5.5 thou/uL (1.40-6.50); %Basophils 0.6 % (0.0-1.0); %Eosinophils 9.3 % (0.0-10.0); %Monocytes 10.8 % (0.0-10.0); %Neutrophils 66.8 % (42.0-75.0); Hematocrit 39.8 % (36.0-47.0); Mean Corpuscular HGB CONC 32.7 g/dL (32.0-36.0); Mean Corpuscular Hemoglobin 29.7 pg (27.0-31.0); Mean Corpuscular Volume 90.9 fl (78.0-98.0); Mean Platelet Volume 10.3 fL (7.4-10.4); Platelet Count 205 10x3/uL (130-400); RBC Distribution Width 13.1 % (11.5-14.5); Red Blood Cell (RBC) Count 4.38 mill/uL (4.20-5.40); White Blood Cell (WBC) Count 8.3 10x3/uL (4.8-10.8)
[2023-03-08 07:32] LABS: Anion Gap 13 mmol/L (10-20); BUN (Urea Nitrogen) 15 mg/dL (9.8-20.1); Calc. Creatinine Clearance 68 mL/min (70-130); Calcium 8.8 mg/dL (7.8-10.44); Carbon Dioxide 37 mmol/L (23-31); Chloride 94 mmol/L (98-107); Estimated GFR 84; Glucose 111 mg/dL (83-110); Magnesium 1.7 mg/dL (1.6-2.6); Sodium 141 mmol/L (136-145)
[2023-03-08] MEDS ORDERED: Potassium Chloride 40 MEQ in Premix 1 BAG IVPB SCH (08:00)
[2023-03-08] MEDS ORDERED: Magnesium 2 GM/50 ML(in water) 2 GM in Premix 1 BAG IVPB SCH (08:30)
[2023-03-08] MEDS: Enoxaparin 40 MG (0.4 mL) SYRINGE SC SCH (08:45)
[2023-03-08] MEDS: Raloxifene 60 MG TAB PO SCH (08:45)
[2023-03-08] MEDS: Ondansetron PF 4 MG/2 ML Vial IVP PRN (11:43)
[2023-03-08] MEDS ORDERED: Multivitamins, Adult 10 ML, TRACE ELEMENT CONCENTRATE 1 ML in D15W-AA 5% with Lytes 2,0... IV SCH (14:00)
[2023-03-08 14:57] LABS: Potassium 3.8 mmol/L (3.5-5.1)
[2023-03-09] MEDS: Metoclopramide HCl 10 MG (2 mL) VIAL IVP SCH ×3 (06:58→21:40)
[2023-03-09] MEDS: Levothyroxine Sodium 50 MCG TAB PO SCH (07:01)
[2023-03-09] MEDS: Thyroid 30 MG TAB PO SCH (07:02)
[2023-03-09 08:00] LABS: Anion Gap 18 mmol/L (10-20); BUN (Urea Nitrogen) 21 mg/dL (9.8-20.1); Calc. Creatinine Clearance 71 mL/min (70-130); Calcium 9.3 mg/dL (7.8-10.44); Carbon Dioxide 33 mmol/L (23-31); Chloride 91 mmol/L (98-107); Estimated GFR 88; Glucose 134 mg/dL (83-110); Magnesium 2.1 mg/dL (1.6-2.6); Phosphorus 4.1 mg/dL (2.3-4.7); Potassium 3.4 mmol/L (3.5-5.1); Sodium 139 mmol/L (136-145)
[2023-03-09] MEDS ORDERED: PROPOFOL 20 ML ONE (08:33)
[2023-03-09] MEDS ORDERED: Lidocaine 1% PF 5 ML VIAL ONE (08:33)
[2023-03-09] MEDS ORDERED: Ketamine In 0.9 % NaCl 50 MG/5 ML SYRINGE ONE (08:57)
[2023-03-09] MEDS ORDERED: Potassium Chloride 40 MEQ in Premix 1 BAG IVPB SCH (09:00)
[2023-03-09] MEDS: Raloxifene 60 MG TAB PO SCH (10:03)
[2023-03-09] MEDS: Enoxaparin 40 MG (0.4 mL) SYRINGE SC SCH (10:03)
[2023-03-09] MEDS ORDERED: Pantoprazole 40 MG VIAL IVP SCH (10:10)
[2023-03-09] MEDS ORDERED: Multivitamins, Adult 10 ML, TRACE ELEMENT CONCENTRATE 1 ML in D15W-AA 5% with Lytes 2,0... IV SCH (14:00)
[2023-03-09 16:36] LABS: Potassium 6.8 mmol/L (3.5-5.1)
[2023-03-09 18:27] LABS: Potassium 3.5 mmol/L (3.5-5.1)
[2023-03-10] MEDS: Levothyroxine Sodium 50 MCG TAB PO SCH (06:08)
[2023-03-10] MEDS: Thyroid 30 MG TAB PO SCH (06:08)
[2023-03-10] MEDS: Metoclopramide HCl 10 MG (2 mL) VIAL IVP SCH ×3 (06:09→21:10)
[2023-03-10] MEDS: Pantoprazole 40 MG VIAL IVP SCH (09:05)
[2023-03-10] MEDS: Raloxifene 60 MG TAB PO SCH (09:05)
[2023-03-10] MEDS: Enoxaparin 40 MG (0.4 mL) SYRINGE SC SCH (09:06)
[2023-03-10 11:42] LABS: Anion Gap 16 mmol/L (10-20); BUN (Urea Nitrogen) 28 mg/dL (9.8-20.1); Calc. Creatinine Clearance 79 mL/min (70-130); Carbon Dioxide 32 mmol/L (23-31); Chloride 92 mmol/L (98-107); Estimated GFR 91; Glucose 121 mg/dL (83-110); Magnesium 1.9 mg/dL (1.6-2.6); Phosphorus 3.5 mg/dL (2.3-4.7); Potassium 3.5 mmol/L (3.5-5.1); Sodium 136 mmol/L (136-145)
[2023-03-10] MEDS ORDERED: [UNRECOGNIZED DRUG - OTHER] IV SCH ×2 (14:00)
[2023-03-10] MEDS ORDERED: SODIUM CHLORIDE IV SCH ×3 (14:00)
[2023-03-10] MEDS ORDERED: MULTIVITAMINS IV SCH ×3 (14:00)
[2023-03-10] MEDS ORDERED: POTASSIUM CHLORIDE IV SCH ×3 (14:00)
[2023-03-10] MEDS ORDERED: [UNRECOGNIZED DRUG - OTHER] IV SCH (14:00)
[2023-03-10] MEDS: [UNRECOGNIZED DRUG - OTHER] IV SCH (15:56)
[2023-03-10] MEDS: SODIUM CHLORIDE IV SCH (15:56)
[2023-03-10] MEDS: POTASSIUM CHLORIDE IV SCH (15:56)
[2023-03-10] MEDS: MULTIVITAMINS IV SCH (15:56)
[2023-03-11] MEDS: Metoclopramide HCl 10 MG (2 mL) VIAL IVP SCH ×3 (05:40→20:57)
[2023-03-11] MEDS: Levothyroxine Sodium 50 MCG TAB PO SCH (05:40)
[2023-03-11] MEDS: Thyroid 30 MG TAB PO SCH (05:40)
[2023-03-11 07:15] LABS: Anion Gap 16 mmol/L (10-20); BUN (Urea Nitrogen) 26 mg/dL (9.8-20.1); Calc. Creatinine Clearance 77 mL/min (70-130); Calcium 9.1 mg/dL (7.8-10.44); Carbon Dioxide 28 mmol/L (23-31); Chloride 93 mmol/L (98-107); Estimated GFR 90; Glucose 107 mg/dL (83-110); Potassium 3.9 mmol/L (3.5-5.1); Sodium 133 mmol/L (136-145)
[2023-03-11 08:15] LABS: Magnesium 1.8 mg/dL (1.6-2.6); Phosphorus 3.6 mg/dL (2.3-4.7)
[2023-03-11] MEDS: Pantoprazole 40 MG VIAL IVP SCH (08:20)
[2023-03-11] MEDS: Enoxaparin 40 MG (0.4 mL) SYRINGE SC SCH (08:20)
[2023-03-11] MEDS: Raloxifene 60 MG TAB PO SCH (08:20)
[2023-03-11] MEDS ORDERED: Magnesium 2 GM/50 ML(in water) 2 GM in Premix 1 BAG IVPB SCH (09:00)
[2023-03-11] MEDS ORDERED: Sodium Chloride 0.9% 1,000 ML IV SCH (09:00)
[2023-03-11 14:47] LABS: Magnesium 2.3 mg/dL (1.6-2.6)
[2023-03-11] MEDS: [UNRECOGNIZED DRUG - OTHER] IV SCH (15:37)
[2023-03-11] MEDS: POTASSIUM CHLORIDE IV SCH (15:37)
[2023-03-11] MEDS: MULTIVITAMINS IV SCH (15:37)
[2023-03-11] MEDS: SODIUM CHLORIDE IV SCH (15:37)
[2023-03-11] MEDS: Ondansetron PF 4 MG/2 ML Vial IVP PRN (18:05)
[2023-03-12] MEDS ORDERED: Sterile Water 10 ML VIAL IVP SCH (01:30)
[2023-03-12] MEDS ORDERED: Activase 2 MG VIAL CATH SCH (01:30)
[2023-03-12] MEDS: Metoclopramide HCl 10 MG (2 mL) VIAL IVP SCH ×3 (06:35→21:01)
[2023-03-12] MEDS: Thyroid 30 MG TAB PO SCH (06:35)
[2023-03-12] MEDS: Levothyroxine Sodium 50 MCG TAB PO SCH (06:35)
[2023-03-12 07:07] LABS: #Basophils 0.1 thou/uL (0.0-0.2); #Eosinphils 1.7 thou/uL (0.0-0.7); #Monocytes 1.6 thou/uL (0.11-0.59); #Neutrophils 6.6 thou/uL (1.40-6.50); %Monocytes 13.3 % (0.0-10.0); %Neutrophils 56.3 % (42.0-75.0); Hematocrit 42.2 % (36.0-47.0); Hemoglobin 13.9 g/dL (12.0-16.0); Mean Corpuscular HGB CONC 32.9 g/dL (32.0-36.0); Mean Corpuscular Hemoglobin 29.1 pg (27.0-31.0); Mean Corpuscular Volume 88.5 fl (78.0-98.0); Mean Platelet Volume 10.5 fL (7.4-10.4); Platelet Count 245 10x3/uL (130-400); RBC Distribution Width 13.1 % (11.5-14.5); Red Blood Cell (RBC) Count 4.77 mill/uL (4.20-5.40); White Blood Cell (WBC) Count 11.8 10x3/uL (4.8-10.8)
[2023-03-12 07:29] LABS: Anion Gap 12 mmol/L (10-20); BUN (Urea Nitrogen) 24 mg/dL (9.8-20.1); Calc. Creatinine Clearance 79 mL/min (70-130); Calcium 8.6 mg/dL (7.8-10.44); Carbon Dioxide 30 mmol/L (23-31); Chloride 95 mmol/L (98-107); Estimated GFR 91; Glucose 91 mg/dL (83-110); Sodium 133 mmol/L (136-145)
[2023-03-12] MEDS: Pantoprazole 40 MG VIAL IVP SCH (08:18)
[2023-03-12] MEDS: Raloxifene 60 MG TAB PO SCH (08:18)
[2023-03-12] MEDS ORDERED: fentaNYL PF 100 MCG/2 ML SYRINGE ONE ×3 (09:38→14:00)
[2023-03-12] MEDS ORDERED: Rocuronium Bromide 10 MG/ML (10ML VIAL) ONE ×2 (09:39→11:13)
[2023-03-12] MEDS ORDERED: PROPOFOL 20 ML ONE (09:39)
[2023-03-12] MEDS ORDERED: Lidocaine 1% PF 5 ML VIAL ONE ×2 (09:39→11:13)
[2023-03-12] MEDS ORDERED: LevoFLOXacin D5W 500 mg (100 mL) BAG ONE (10:36)
[2023-03-12] MEDS ORDERED: Bupivacaine 0.25% HCL 30 ML VIAL ONE (10:41)
[2023-03-12] MEDS ORDERED: EPINEPHrine 1 MG/ML VIAL ONE (10:41)
[2023-03-12] MEDS ORDERED: Succinylcholine 200 MG/10 ml SYRINGE FS ONE ×2 (10:52→11:13)
[2023-03-12] MEDS ORDERED: Ondansetron PF 4 MG/2 ML Vial ONE ×2 (11:13→13:11)
[2023-03-12] MEDS ORDERED: PROPOFOL 200 MG/20 ML VIAL ONE (11:13)
[2023-03-12] MEDS ORDERED: PHENYLEPHRINE-NS 100 MCG/ML 10 ML SYRINGE ONE (11:31)
[2023-03-12] MEDS ORDERED: SUGAMMADEX SODIUM 200 MG/2 ML VIAL ONE (13:14)
[2023-03-12] MEDS ORDERED: Ondansetron HCl/PF 4 MG/2 ML Vial IVP PRN (13:32)
[2023-03-12] MEDS ORDERED: Promethazine HCl 25 MG/ML VIAL IM PRN ×2 (13:32→16:30)
[2023-03-12] MEDS ORDERED: SODIUM CHLORIDE IV SCH (14:00)
[2023-03-12] MEDS ORDERED: [UNRECOGNIZED DRUG - OTHER] IV SCH (14:00)
[2023-03-12] MEDS ORDERED: MULTIVITAMINS IV SCH (14:00)
[2023-03-12] MEDS ORDERED: POTASSIUM CHLORIDE IV SCH (14:00)
[2023-03-12] MEDS: [UNRECOGNIZED DRUG - OTHER] IV SCH (14:47)
[2023-03-12] MEDS: SODIUM CHLORIDE IV SCH (14:47)
[2023-03-12] MEDS: MULTIVITAMINS IV SCH (14:47)
[2023-03-12] MEDS: POTASSIUM CHLORIDE IV SCH (14:47)
[2023-03-12] MEDS ORDERED: Communication Order-Pharmacy FS SCH (16:30)
[2023-03-12] MEDS ORDERED: diphenhydrAMINE 50 MG/ML VIAL IVP PRN (16:30)
[2023-03-12] MEDS ORDERED: diphenhydrAMINE 50 MG/ML VIAL IM PRN (16:30)
[2023-03-12] MEDS ORDERED: FENTANYL 500 MCG/10 ML VIAL 2,000 MCG in Sodium Chloride 0.9% 60 ML IV PRN (16:30)
[2023-03-12] MEDS ORDERED: Naloxone HCl 0.4 mg/ml Vial IV PRN (16:30)
[2023-03-12] MEDS ORDERED: diphenhydrAMINE 25 MG CAP PO PRN (16:30)
[2023-03-12] MEDS: Ondansetron PF 4 MG/2 ML Vial IVP PRN (23:17)
[2023-03-13] MEDS: Prochlorperazine Edisylate 10 MG in Sodium Chloride 0.9% 50 ML IVPB PRN (00:35)
[2023-03-13] MEDS: Levothyroxine Sodium 50 MCG TAB PO SCH (04:59)
[2023-03-13] MEDS: Thyroid 30 MG TAB PO SCH (05:00)
[2023-03-13] MEDS: Metoclopramide HCl 10 MG (2 mL) VIAL IVP SCH ×3 (05:45→20:59)
[2023-03-13 06:19] LABS: #Basophils 0.1 thou/uL (0.0-0.2); #Eosinphils 0.5 thou/uL (0.0-0.7); #Monocytes 1.4 thou/uL (0.11-0.59); #Neutrophils 11.9 thou/uL (1.40-6.50); %Basophils 0.4 % (0.0-1.0); %Eosinophils 3.1 % (0.0-10.0); %Lymphocytes 6.5 % (21.0-51.0); %Monocytes 9.6 % (0.0-10.0); %Neutrophils 79.7 % (42.0-75.0); Hematocrit 38.5 % (36.0-47.0); Hemoglobin 12.4 g/dL (12.0-16.0); Mean Corpuscular HGB CONC 32.2 g/dL (32.0-36.0); Mean Platelet Volume 10.8 fL (7.4-10.4); Platelet Count 207 10x3/uL (130-400); RBC Distribution Width 13.2 % (11.5-14.5); Red Blood Cell (RBC) Count 4.28 mill/uL (4.20-5.40)
[2023-03-13 06:40] LABS: Anion Gap 11 mmol/L (10-20); BUN (Urea Nitrogen) 22 mg/dL (9.8-20.1); Calc. Creatinine Clearance 86 mL/min (70-130); Calcium 8.3 mg/dL (7.8-10.44); Carbon Dioxide 28 mmol/L (23-31); Chloride 99 mmol/L (98-107); Estimated GFR 93; Glucose 104 mg/dL (83-110); Potassium 4.2 mmol/L (3.5-5.1); Sodium 134 mmol/L (136-145)
[2023-03-13] MEDS: Enoxaparin 40 MG (0.4 mL) SYRINGE SC SCH (08:57)
[2023-03-13] MEDS: Pantoprazole 40 MG VIAL IVP SCH (08:57)
[2023-03-13] MEDS: Raloxifene 60 MG TAB PO SCH (08:57)
[2023-03-13] MEDS: SODIUM CHLORIDE IV SCH (14:48)
[2023-03-13] MEDS: MULTIVITAMINS IV SCH (14:48)
[2023-03-13] MEDS: [UNRECOGNIZED DRUG - OTHER] IV SCH (14:48)
[2023-03-13] MEDS: POTASSIUM CHLORIDE IV SCH (14:48)
[2023-03-13] MEDS: Ondansetron PF 4 MG/2 ML Vial IVP PRN (14:49)
[2023-03-14] MEDS: Levothyroxine Sodium 50 MCG TAB PO SCH (05:08)
[2023-03-14] MEDS: Thyroid 30 MG TAB PO SCH (05:09)
[2023-03-14] MEDS: Metoclopramide HCl 10 MG (2 mL) VIAL IVP SCH ×3 (05:09→21:53)
[2023-03-14] MEDS: Enoxaparin 40 MG (0.4 mL) SYRINGE SC SCH (10:09)
[2023-03-14] MEDS: Pantoprazole 40 MG VIAL IVP SCH (10:09)
[2023-03-14] MEDS: Raloxifene 60 MG TAB PO SCH (10:10)
[2023-03-14] MEDS ORDERED: Morphine 2 MG/ML VIAL SLOW IVP PRN ×2 (10:22→10:52)
[2023-03-14] MEDS ORDERED: Ketorolac Tromethamine 30 MG (1 mL) VIAL IVP PRN (10:49)
[2023-03-14] MEDS ORDERED: Morphine 4 MG/ML VIAL SLOW IVP PRN ×2 (10:49→10:52)
[2023-03-14] MEDS: MULTIVITAMINS IV SCH (13:53)
[2023-03-14] MEDS: SODIUM CHLORIDE IV SCH (13:53)
[2023-03-14] MEDS: POTASSIUM CHLORIDE IV SCH (13:53)
[2023-03-14] MEDS: [UNRECOGNIZED DRUG - OTHER] IV SCH (13:53)
[2023-03-15] MEDS: Levothyroxine Sodium 50 MCG TAB PO SCH (05:29)
[2023-03-15] MEDS: Metoclopramide HCl 10 MG (2 mL) VIAL IVP SCH ×3 (05:29→21:50)
[2023-03-15] MEDS: Thyroid 30 MG TAB PO SCH (05:29)
[2023-03-15 07:37] LABS: Hematocrit 38.7 % (36.0-47.0); Hemoglobin 11.8 g/dL (12.0-16.0); Mean Corpuscular HGB CONC 30.5 g/dL (32.0-36.0); Mean Corpuscular Hemoglobin 28.6 pg (27.0-31.0); Mean Corpuscular Volume 93.7 fl (78.0-98.0); Mean Platelet Volume 10.8 fL (7.4-10.4); Platelet Count 183 10x3/uL (130-400); RBC Distribution Width 13.2 % (11.5-14.5); Red Blood Cell (RBC) Count 4.13 mill/uL (4.20-5.40); White Blood Cell (WBC) Count 9.3 10x3/uL (4.8-10.8)
[2023-03-15 08:03] LABS: Anion Gap 14 mmol/L (10-20); BUN (Urea Nitrogen) 16 mg/dL (9.8-20.1); Calc. Creatinine Clearance 94 mL/min (70-130); Calcium 8.2 mg/dL (7.8-10.44); Carbon Dioxide 18 mmol/L (23-31); Chloride 104 mmol/L (98-107); Estimated GFR 95; Glucose 109 mg/dL (83-110); Magnesium 1.7 mg/dL (1.6-2.6); Potassium 4.5 mmol/L (3.5-5.1); Sodium 131 mmol/L (136-145)
[2023-03-15 08:10] LABS: Phosphorus 3.3 mg/dL (2.3-4.7)
[2023-03-15] MEDS: Pantoprazole 40 MG VIAL IVP SCH (09:31)
[2023-03-15] MEDS: Enoxaparin 40 MG (0.4 mL) SYRINGE SC SCH (09:31)
[2023-03-15] MEDS: Raloxifene 60 MG TAB PO SCH (09:31)
[2023-03-15] MEDS ORDERED: Hydrocodone-Acetamin 15 ML UDCUP PO PRN (10:56)
[2023-03-15] MEDS ORDERED: Acetaminophen 325 MG (10.15 ML) UDCUP PO PRN (10:57)
[2023-03-15] MEDS ORDERED: Acetaminophen 650 MG/20.3 ML UDCUP PO PRN (10:59)
[2023-03-16] MEDS: Levothyroxine Sodium 50 MCG TAB PO SCH (05:29)
[2023-03-16] MEDS: Thyroid 30 MG TAB PO SCH (05:29)
[2023-03-16] MEDS: Metoclopramide HCl 10 MG (2 mL) VIAL IVP SCH (05:30)
[2023-03-16] MEDS: Enoxaparin 40 MG (0.4 mL) SYRINGE SC SCH (09:33)
[2023-03-16] MEDS: Raloxifene 60 MG TAB PO SCH (09:33)
[2023-03-16] MEDS: Pantoprazole 40 MG VIAL IVP SCH (09:34)
[2023-03-16 12:38] VITALS: BP 128/66; TEMP 97.8
== END 2023-03-16 14:05 | disposition home or self-care (01) | DRG 327 ==
LOC: ERS 11:17 → MERGE 15:17 → ERHOLD 15:17 → 2NO 18:46 → SURG A 03-01 16:23
PROVIDERS: ADMIT Hospitalist; ATTEND Internal Medicine
PROC: 0D9670Z Drainage of Stomach with Drainage Device, Via Natural or Artificial Opening (ICD-10-PCS; 2023-02-27)
PROC: 0DQV4ZZ Repair Mesentery, Percutaneous Endoscopic Approach (ICD-10-PCS; 2023-03-01)
PROC: 02HV33Z Insertion of Infusion Device into Superior Vena Cava, Percutaneous Approach (ICD-10-PCS; principal; 2023-03-06)
PROC: B5181ZA Fluoroscopy of Superior Vena Cava using Low Osmolar Contrast, Guidance (ICD-10-PCS; 2023-03-06)
PROC: B548ZZA Ultrasonography of Superior Vena Cava, Guidance (ICD-10-PCS; 2023-03-06)
PROC: 0DJ08ZZ Inspection of Upper Intestinal Tract, Via Natural or Artificial Opening Endoscopic (ICD-10-PCS; 2023-03-09)
PROC: 0D164ZA Bypass Stomach to Jejunum, Percutaneous Endoscopic Approach (ICD-10-PCS; 2023-03-12)
PROC: 8E0W4CZ Robotic Assisted Procedure of Trunk Region, Percutaneous Endoscopic Approach (ICD-10-PCS; 2023-03-12)
DX: Q41.0 Congenital absence, atresia and stenosis of duodenum (principal); E87.0 Hyperosmolality and hypernatremia; K46.0 Unspecified abdominal hernia with obstruction, without gangrene; Q43.3 Congenital malformations of intestinal fixation; I48.0 Paroxysmal atrial fibrillation; E03.9 Hypothyroidism, unspecified; E87.6 Hypokalemia; E87.8 Other disorders of electrolyte and fluid balance, not elsewhere classified; K57.10 Diverticulosis of small intestine without perforation or abscess without bleeding; K29.70 Gastritis, unspecified, without bleeding; K21.00 Gastro-esophageal reflux disease with esophagitis, without bleeding; Z98.890 Other specified postprocedural states; Z82.49 Family history of ischemic heart disease and other diseases of the circulatory system; Z90.49 Acquired absence of other specified parts of digestive tract; Z88.0 Allergy status to penicillin; Z88.2 Allergy status to sulfonamides; Z79.82 Long term (current) use of aspirin; Z79.890 Hormone replacement therapy; Z79.899 Other long term (current) drug therapy
CPT/HCPCS: 36415; 36416; 36569; 74018; 74177; 74250; 80048; 80053; 81001; 83690; 83735; 84100; 85025; 85027; 93005; 96374; C9113; J0171; J0780; J1100; J1650; J1885; J1956; J2270; J2272; J2405; J2704; J2765; J2997; J3010; J3475; J3480; J3490; J7042; J7050; Q0162; Q9963; Q9967; S0020

== ENCOUNTER 2023-04-10 09:53 | Day surgery (SDC) | payer MEDICARE, BC ==
[~2023-04-10 09:53] MED LIST changes: -Iopamidol-370 76% 500 ML MDV (1 ML CHARGE) ONE; +Multivitamins, Adult 10 ML, Thiamine HCl 100 MG in Sodium Chloride 0.9% 1,000 ML IV SCH; +Ondansetron PF 4 MG/2 ML Vial IVP PRN; +Sodium Chloride 0.9% 1,000 ML IV SCH
[2023-04-10] MEDS ORDERED: Ondansetron PF 4 MG/2 ML Vial ONE (11:02)
[2023-04-10 11:12] VITALS: BP 100/54; TEMP 98
== END 2023-04-10 13:42 | disposition home or self-care (01) ==
LOC: ONC/OP 09:53
PROVIDERS: ATTEND Surgery
DX: E86.0 Dehydration (principal)
CPT/HCPCS: 96360; 96361; J2405; J3411; J7050

== ENCOUNTER 2023-04-15 17:48 | Emergency (ER) | payer MEDICARE, BC ==
[~2023-04-15 17:48] MED LIST changes: +GASTROGRAFIN 30 ML BOT ONE; +Iopamidol-370 76% 500 ML MDV (1 ML CHARGE) ONE; -Multivitamins, Adult 10 ML, Thiamine HCl 100 MG in Sodium Chloride 0.9% 1,000 ML IV SCH; -Ondansetron PF 4 MG/2 ML Vial IVP PRN; -Sodium Chloride 0.9% 1,000 ML IV SCH
[2023-04-15] MEDS ORDERED: Ondansetron PF 4 MG/2 ML Vial ONE (19:14)
[2023-04-15 19:15] LABS: #Eosinphils 0.2 thou/uL (0.0-0.7); #Monocytes 0.7 thou/uL (0.11-0.59); #Neutrophils 7.5 thou/uL (1.40-6.50); %Basophils 0.2 % (0.0-1.0); %Eosinophils 2.2 % (0.0-10.0); %Lymphocytes 10.5 % (21.0-51.0); %Monocytes 7.2 % (0.0-10.0); %Neutrophils 79.5 % (42.0-75.0); Hematocrit 35.8 % (36.0-47.0); Hemoglobin 11.7 g/dL (12.0-16.0); Mean Corpuscular HGB CONC 32.7 g/dL (32.0-36.0); Mean Corpuscular Volume 88.6 fl (78.0-98.0); Mean Platelet Volume 10.2 fL (7.4-10.4); Platelet Count 272 10x3/uL (130-400); RBC Distribution Width 13.1 % (11.5-14.5); Red Blood Cell (RBC) Count 4.04 mill/uL (4.20-5.40); White Blood Cell (WBC) Count 9.5 10x3/uL (4.8-10.8)
[2023-04-15 19:39] LABS: ALT (SGPT) 14 U/L (8-55); AST (SGOT) 16 U/L (5-34); Albumin 3.4 g/dL (3.4-4.8); Alkaline Phosphatase 79 U/L (40-110); Anion Gap 13 mmol/L (10-20); BUN (Urea Nitrogen) 10 mg/dL (9.8-20.1); Bilirubin, Total 0.4 mg/dL (0.2-1.2); Calc. Creatinine Clearance 0 mL/min (70-130); Calcium 8.9 mg/dL (7.8-10.44); Carbon Dioxide 28 mmol/L (23-31); Chloride 101 mmol/L (98-107); Estimated GFR 67; Globulin 2.6 g/dL (2.4-3.5); Glucose 100 mg/dL (83-110); Lipase 22 U/L (8-78); Magnesium 1.7 mg/dL (1.6-2.6); Potassium 3.4 mmol/L (3.5-5.1); Sodium 139 mmol/L (136-145)
[2023-04-15] MEDS ORDERED: Potassium Chloride 20 MEQ (100 mL) BAG ONE (21:20)
[2023-04-16 01:37] LABS: Bilirubin Negative (Negative); Blood, Urine Negative (Negative); Glucose, Urine (Dipstick) Negative (Negative); Ketone, Urine Trace mg/dL (Negative); Leukocyte Negative (Negative); Nitrite Negative (Negative); Protein, Urine (Dipstick) Negative (Neg-Trace); Urobilinogen 0.2 mg/dL (Less than 2)
[2023-04-16 01:39] LABS: Clarity Clear (Clear)
[2023-04-16 01:43] LABS: Specific Gravity, Urine 1.038 (1.002-1.036)
[2023-04-16 01:44] LABS: Bacteria/HPF 2+ HPF (None Seen); CAUTI Indications for Culture Pelvic or flank pain; RBC/HPF None Seen HPF (0-3); Squamous Epithelial None Seen HPF (0-3); WBC/HPF 0-3 HPF (0-3)
[2023-04-16 01:45] LABS: Urine Culture Reflex No No
== END 2023-04-16 02:28 | disposition home or self-care (01) ==
LOC: ERS 17:48
DX: K57.32 Diverticulitis of large intestine without perforation or abscess without bleeding (principal); N39.0 Urinary tract infection, site not specified; I48.91 Unspecified atrial fibrillation; R19.7 Diarrhea, unspecified; Z79.01 Long term (current) use of anticoagulants
CPT/HCPCS: 36415; 74022; 74177; 80053; 81001; 83605; 83690; 83735; 85025; 96361; 96365; 96366; 96375; J2405; J3480; Q9963; Q9967

== ENCOUNTER 2023-05-24 09:06 | Outpatient (CLI) | payer MEDICARE, BC ==
[2023-05-24] MEDS ORDERED: Barium Sulfate 96% 176 GM BOT (xray ONLY) ONE ×2 (09:46→10:20)
[2023-05-24] MEDS ORDERED: E-Z-HD 98% W/W 340GM BOT (x-ray ONLY) ONE (09:46)
[2023-05-24] MEDS ORDERED: GASTROGRAFIN 30 ML BOT ONE (12:52)
== END 2023-05-24 09:07 | disposition home or self-care (01) ==
LOC: RAD 09:06
PROVIDERS: ATTEND Internal Medicine Gastroenterology
DX: K57.10 Diverticulosis of small intestine without perforation or abscess without bleeding (principal); R19.7 Diarrhea, unspecified; R63.4 Abnormal weight loss; K59.89 Other specified functional intestinal disorders; K63.89 Other specified diseases of intestine; Z98.890 Other specified postprocedural states
CPT/HCPCS: 74246; Q9963

== ENCOUNTER 2023-06-12 11:58 | Outpatient (CLI) | payer MEDICARE, BC ==
[~2023-06-12 11:58] MED LIST changes: -GASTROGRAFIN 30 ML BOT ONE; +Iopamidol 370 76% 100 ML VIAL ONE; -Iopamidol-370 76% 500 ML MDV (1 ML CHARGE) ONE
== END 2023-06-12 11:59 | disposition home or self-care (01) ==
LOC: CT 11:58
PROVIDERS: ATTEND Internal Medicine Gastroenterology
DX: R11.2 Nausea with vomiting, unspecified (principal); R19.7 Diarrhea, unspecified; R93.89 Abnormal findings on diagnostic imaging of other specified body structures; K63.89 Other specified diseases of intestine; Q43.3 Congenital malformations of intestinal fixation; Z93.4 Other artificial openings of gastrointestinal tract status
CPT/HCPCS: 74178; 82565; Q9967

== ENCOUNTER 2023-09-18 14:03 | Outpatient (CLI) | payer MEDICARE, BC | END 2023-09-18 14:04 | disposition home or self-care (01) | LOC: BICMAMMO 14:03 | PROVIDERS: ATTEND Nurse Practitioner Family | DX: Z12.31 Encounter for screening mammogram for malignant neoplasm of breast (principal); Z13.820 Encounter for screening for osteoporosis; Z78.0 Asymptomatic menopausal state; M81.0 Age-related osteoporosis without current pathological fracture; M85.851 Other specified disorders of bone density and structure, right thigh; M85.852 Other specified disorders of bone density and structure, left thigh; Z80.3 Family history of malignant neoplasm of breast | CPT/HCPCS: 77063; 77067; 77080 ==

== ENCOUNTER 2024-12-22 14:23 | Outpatient (CLI) | payer MEDICARE, BC | END 2024-12-22 14:24 | disposition home or self-care (01) | LOC: ULT 14:23 | PROVIDERS: ATTEND Nurse Practitioner Family | DX: R30.0 Dysuria (principal); N23 Unspecified renal colic | CPT/HCPCS: 76770 ==